=== PATIENT | female | born 1970 | race Caucasian/White ===

== ENCOUNTER 2016-04-19 07:02 | Observation (INO) | payer MEDICAID ==
[2016-04-15 10:10] VITALS: Ht 165.1 cm; Wt 54.4 kg
[2016-04-19] VITALS (14 sets, daily range): BP systolic 95–124; RESP 12–20; TEMP 97.6–98.4
[~2016-04-19] VITALS: Ht 165.1 cm; Wt 54.4 kg
[2016-04-19] MEDS ORDERED: MIDAZOLAM 2 MG/2 ML INJ IV ONE (07:30)
[2016-04-19] MEDS ORDERED: LACT RINGERS 1,000 ML IV SCH ×2 (07:30→12:40)
[2016-04-19] MEDS ORDERED: LIDOCAINE 1% BUFFERED 1 ML SYR INTRADERM PRN (07:30)
[2016-04-19] MEDS ORDERED: GLYCOPYRROLATE 0.2 MG/ML VIAL IV ONE ×2 (07:30→13:43)
[2016-04-19] MEDS ORDERED: CEFAZOLIN 2,000 MG in SODIUM CHLORIDE 0.9% 100 ML IV ONE (07:35)
[2016-04-19] MEDS ORDERED: OXYCODONE 5 MG TAB PO PRN (09:20)
[2016-04-19] MEDS ORDERED: MORPHINE 4 MG/ML SYR IV PRN (09:20)
[2016-04-19] MEDS ORDERED: MORPHINE 2 MG/ML SYR IV PRN (09:20)
[2016-04-19] MEDS ORDERED: MEPERIDINE 25 MG/ML IV PRN (09:20)
[2016-04-19] MEDS ORDERED: DILAUDID 1 MG/ML AMP IV PRN (09:20)
[2016-04-19] MEDS ORDERED: ONDANSETRON 4 MG VIAL IV PRN ×2 (09:20→12:40)
[2016-04-19] MEDS ORDERED: Ibuprofen 600 MG TAB PO PRN (12:40)
[2016-04-19] MEDS ORDERED: PROCHLORPERAZINE 10 MG/2 ML VIAL IV PRN (12:40)
[2016-04-19] MEDS ORDERED: DILAUDID 1 MG/ML AMP ONE (12:53)
[2016-04-19] MEDS ORDERED: BUPIVACAINE 0.5% PF 30 ML INFILTRATE ONE (13:33)
[2016-04-19] MEDS ORDERED: PHENAZOPYRIDINE 100 MG TAB PO ONE (13:34)
[2016-04-19] MEDS: MORPHINE 4 MG/ML SYR IV PRN ×2 (13:36→21:00)
[2016-04-19] MEDS ORDERED: PROPOFOL 20 ML PER ML IV ONE (13:43)
[2016-04-19] MEDS ORDERED: DEXAMETHASONE 4 MG/ML VIAL IV ONE (13:43)
[2016-04-19] MEDS ORDERED: ACETAMINOPHEN 1,000 MG/100 ML IV ONE (13:43)
[2016-04-19] MEDS ORDERED: ONDANSETRON 4 MG VIAL IV PUSH ONE (13:43)
[2016-04-19] MEDS ORDERED: NEOSTIGMINE 10 MG/10 ML VIAL IV ONE (13:43)
[2016-04-19] MEDS ORDERED: DILAUDID 1 MG/ML AMP IV ONE (13:43)
[2016-04-19] MEDS ORDERED: LIDOCAINE 2% SYR 5 ML IV ONE (13:43)
[2016-04-19] MEDS ORDERED: FENTANYL 100 MCG/2 ML AMP IV ONE (13:43)
[2016-04-19] MEDS ORDERED: KETOROLAC 30 MG/ML VIAL IV ONE (13:43)
[2016-04-19] MEDS ORDERED: ROCURONIUM 50 MG VIAL IV ONE (13:43)
[2016-04-19] MEDS: MORPHINE 2 MG/ML SYR IV PRN ×2 (16:59→18:48)
[2016-04-19] MEDS: KETOROLAC 30 MG/ML VIAL IV PRN ×2 (18:13→23:20)
[2016-04-19] MEDS ORDERED: BUPROPION HCL 100 MG TAB PO SCH (21:00)
[2016-04-19] MEDS ORDERED: CITALOPRAM 20 MG TAB PO SCH (21:00)
[2016-04-19] MEDS ORDERED: ATENOLOL 25 MG TAB PO SCH (21:00)
[2016-04-19] MEDS ORDERED: TOLTERODINE LA 2 MG CAP PO SCH (21:00)
[2016-04-19] MEDS: TOPIRAMATE 100 MG TAB PO SCH (21:00)
[2016-04-19] MEDS ORDERED: DOCUSATE SOD 100 MG CAP PO ONE (21:00)
[2016-04-19] MEDS: KCL CR 20 MEQ TAB PO SCH (21:00)
[2016-04-20 00:09] VITALS: BP_SYST 92; RESP 16; TEMP 97.7
[2016-04-20 03:23] VITALS: BP_SYST 119; RESP 18; TEMP 98.1
[2016-04-20 08:18] VITALS: BP_SYST 107; RESP 16; TEMP 98.1
[2016-04-20] MEDS: KETOROLAC 30 MG/ML VIAL IV PRN (08:45)
[2016-04-20 08:51] VITALS: BP_SYST 107; RESP 16; TEMP 98.1
[2016-04-20] MEDS: TOPIRAMATE 100 MG TAB PO SCH (09:07)
[2016-04-20] MEDS: KCL CR 20 MEQ TAB PO SCH (09:08)
== END 2016-04-20 06:00 | disposition home or self-care (01) ==
LOC: SURG 07:02 → SDS 12:38 → 3S 13:07
PROVIDERS: ADMIT Obstetrics & Gynecology Reproductive Endocrinology; ATTEND Obstetrics & Gynecology Reproductive Endocrinology
CPT/HCPCS: 85025; 88307